=== PATIENT | male | born 2000 | race Caucasian/White ===

== ENCOUNTER 2021-12-27 23:14 | Emergency (ER) | payer SELFPAY ==
[~2021-12-27] VITALS: Ht 175.3 cm; Wt 56.9 kg
[2021-12-27] MEDS ORDERED: predniSONE 20 mg tablet PO ONE (23:50)
[2021-12-27] MEDS ORDERED: diphenhydrAMINE 25mg capsule PO ONE (23:50)
[2021-12-28] VITALS: BP 130/78
== END 2021-12-28 00:02 | disposition home or self-care (01) ==
LOC: ER 23:15
DX: L50.9 Urticaria, unspecified (principal); F17.200 Nicotine dependence, unspecified, uncomplicated; F12.90 Cannabis use, unspecified, uncomplicated
CPT/HCPCS: 99283; J7512; Q0163